=== PATIENT | male | born 1985 | race Caucasian/White ===

== ENCOUNTER 2017-05-18 11:06 | Emergency (ER) | payer OTHER ==
[~2017-05-18] VITALS: Ht 182.9 cm; Wt 106.6 kg
[2017-05-18] MEDS ORDERED: BUPIVACAINE HCL 0.5% 10ML MPF VIAL INJ ONE (12:30)
[2017-05-18] MEDS ORDERED: DEXAMETHASONE 10MG/ML PF INJ INJ ONE (12:30)
[2017-05-18] MEDS ORDERED: DEXAMETHASONE SOD PHOS 10 MG/1 ML VIAL IV ONE (13:30)
[2017-05-18 13:50] VITALS: BP 121/78
== END 2017-05-18 14:00 | disposition home or self-care (01) ==
LOC: ER 11:06
DX: G44.221 Chronic tension-type headache, intractable (principal); F95.2 Tourette's disorder; M62.838 Other muscle spasm
CPT/HCPCS: 99282; J1100

== ENCOUNTER 2018-07-15 21:29 | Emergency (ER) | payer OTHER ==
[~2018-07-15] VITALS: Ht 182.9 cm; Wt 102.5 kg
--- OUTSIDE RECORDS SUMMARY | 2018-07-15 21:33 | XMS REPORT | Clinical Summary ---
Author Author [facility] Address Unknown Phone Unavailable Care Team Providers Care Cadd Manager Name Role Phone Willy Wan DO PCP Allergies Comments Active Allergy Reactions Severity Noted Date Methylprednisolone 03/06/2016 Medications End Date Status Medication Sig Dispensed Refills Start Date Active butalbital-acetaminophen- Take 1 1 caff 50-300-40 mg capsule capsule by 6 mouth 3 (three) times a day as needed. Active clobetasol (TEMOVATE) Apply 1 0 0.05 % ointment application 6 topically as needed. Active metaxalone (SKELAXIN) 800 Take 800 mg 1 MG tablet by mouth as 6 needed. 11/05/2018 Active levETIRAcetam (KEPPRA) Take 1 tablet 60 tablet 11 500 MG tablet (500 mg 8 total) by mouth 2 (two) times a day. Active hydrOXYzine (ATARAX) 50 1-2 pills HS 60 tablet 3 MG tablet 8 Active levocetirizine (XYZAL) 5 Take 5 mg by 0 MG tablet mouth every evening. Active ibuprofen (ADVIL,MOTRIN) Take 800 mg 0 800 MG tablet by mouth every 6 (six) hours as needed for mild pain. Active sildenafil (VIAGRA) 50 MG Take 50 mg by 0 tablet mouth daily as needed for erectile dysfunction. 01/09/2019 Active ALPRAZolam (XANAX) 0.5 MG TAKE 1 TABLET 90 tablet 0 tablet BY MOUTH 9 THREE TIMES DAILY NEEDED FOR ANXIETY AND SLEEP FOR UP TO 180 DAYS 01/05/2018 Discontinued levocetirizine (XYZAL) 5 Take 5 mg by 0 MG tablet mouth as 6 needed. 10/12/2017 ALPRAZolam (XANAX) 0.5 MG TAKE 1 TABLET 90 tablet 5 tablet BY MOUTH 7 THREE TIMES DAILY NEEDED FOR ANXIETY 08/20/2017 carisoprodol (SOMA) 350 Take 1 tablet 180 tablet 3 MG tablet (350 mg 7 total) by mouth 3 (three) times a day as needed for muscle spasms for up to 90 days. 04/06/2018 Discontinued acetaminophen-codeine Take 1 tablet 0 (TYLENOL WITH CODEINE #4) by mouth 300-60 mg per tablet every 4 (four) hours as needed for moderate pain. 01/05/2018 Discontinued ALPRAZolam XR (XANAX XR) 1-2 pills 60 tablet 5 1 MG 24 hr tablet daily 8 07/04/2018 ALPRAZolam (XANAX) 0.5 MG Take 1 tablet 90 tablet 5 tablet (0.5 mg 8 total) by mouth 3 (three) times a day as needed for anxiety or sleep for up to 180 days. Status Hospital, Clinic, or Ordered Dose Route Frequency Start End Date Other Facility Date Administered Medication Active onabotulinumtoxinA 340 Units inj once 07/06/19 (BOTOX) injection 340 19 UnitsIndications: Isolated cervical dystonia Discontinued onabotulinumtoxinA 340 Units inj once 06/23/19 (BOTOX) injection 340 18 8 UnitsIndications: Isolated cervical dystonia Discontinued onabotulinumtoxinA 340 Units inj once 09/23/19 (BOTOX) injection 340 18 8 UnitsIndications: Isolated cervical dystonia Discontinued onabotulinumtoxinA 340 Units inj once 09/23/19 (BOTOX) injection 340 18 8 UnitsIndications: Isolated cervical dystonia Discontinued onabotulinumtoxinA 340 Units inj once 01/06/20 (BOTOX) injection 340 18 8 UnitsIndications: Isolated cervical dystonia Discontinued onabotulinumtoxinA 340 Units inj once 04/06/20 (BOTOX) injection 340 18 9 UnitsIndications: Isolated cervical dystonia Active Problems Problem Noted Date Anxiety 03/06/2016 Obsessive-compulsive disorder 03/06/2016 Roberto de la Tourette's syndrome 03/06/2016 Attention deficit disorder of adult with hyperactivity 03/06/2016 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 Neck pain 03/06/2016 Cervical spondylosis with radiculopathy 03/06/2016 Bilateral carpal tunnel syndrome Myasthenia gravis with exacerbation Encounters Care Team Description Date Type Specialty Kizzy Kang MD 07/12/2018 Refill Neurology Kizzy Kang MD Gilles de la Tourette's syndrome (Primary Dx); Isolated cervical dystonia; Tic of organic origin; Anxiety; Cervical spondylosis with radiculopathy; Obsessive-compulsive disorder, unspecified type; Insomnia, unspecified type; Attention deficit disorder of adult with hyperactivity 07/06/2018 Clinical Neurology Support Kizzy Kang MD Gilles de la Tourette's syndrome (Primary Dx); Isolated cervical dystonia; Tic of organic origin; Anxiety; Cervical spondylosis with radiculopathy; Obsessive-compulsive disorder, unspecified type; Insomnia, unspecified type 04/06/2018 Clinical Neurology Support Kizzy Kang MD Dysphagia, unspecified type (Primary Dx); Myasthenic syndrome 02/15/2018 Orders Only Neurology José Luis Gallegos MD Cervical spondylosis with radiculopathy (Primary Dx) 01/18/2018 Office Visit Neurosurgery Kizzy Kang MD Gilles de la Tourette's syndrome (Primary Dx); Isolated cervical dystonia; Tic of organic origin; Anxiety; Cervical spondylosis with radiculopathy 01/05/2018 Clinical Neurology Support Kizzy Kang MD 12/04/2017 Orders Only Neurology Kizzy Kang MD 11/05/2017 Orders Only Neurology Kizzy Kang MD 11/05/2017 Orders Only Neurology Kizzy Kang MD Cervical stenosis of spinal canal (Primary Dx) 10/22/2017 Orders Only Neurology Kizzy Kang MD Gilles de la Tourette's syndrome (Primary Dx); Isolated cervical dystonia; Tic of organic origin; Obsessive-compulsive disorder, unspecified type; Anxiety; Cervical spondylosis with radiculopathy 09/22/2017 Clinical Neurology Support after 07/14/2017 Family History Medical History Relation Name Comments No Known Problems Father Diabetes Mother Lupus Mother Systemic lupus erythematosus Pulmonary Arterial Mother Pulmonary hypertension Hypertension Relation Name Status Comments Father Alive Mother Alive Social History Date Tobacco Use Types Packs/Day Years Used Former Smoker Smokeless Tobacco: Never Used Comments: quit 6 months ago/ non smoker Alcohol Use Drinks/Week oz/Week Comments Yes occasional Sex Assigned at Date Recorded Not on file Industry Job Start Date Occupation Not on file Not on file Not on file Travel End Travel History Travel Start No recent travel history available. Last Filed Vital Signs Time Taken Vital Sign Reading 07/06/2018 1:37 PM USER [employer]IENCE [employer]AD Blood Pressure 152/88 07/06/2018 1:37 PM USER [employer]AD Pulse 91 - Temperature - - Respiratory Rate - - Oxygen Saturation - - Inhaled Oxygen - Concentration 07/06/2018 1:37 PM US[employer] Weight 103 kg (227 lb) 07/06/2018 1:37 PM USER [employer] Height 182.9 cm (6') 07/06/2018 1:37 PM USER [employer]IENCE LEAD Body Mass Index 30.79 Plan of Treatment Care Team Description Date Type Specialty Kizzy Kang MD [address] [id number] 10/05/2018 Clinical Neurology Support Health Maintenance Due Date Last Done Comments INFLUENZA VACCINE Completed 02/08/2018 Procedures Comments Procedure Name Priority Date/Time Associated Diagnosis EMG Routine 03/25/2018 Dysphagia, unspecified 1:24 PM CDT type Myasthenic syndrome (HCC) after 07/14/2017 Results * EMG General Request (03/25/2018 1:24 PM CDT) Impressions Performed At Mr. Valladares complains of cervical pains that sometimes extend down both arm, bilateral hand numbness that does not waken him from sleep and intermittent difficulty swallowing. Mr. Valladares is being evaluated for carpal tunnel syndrome, cervical radiculopathy and myasthenia gravis. 1) Median motor latencies are bilaterally minimally delayed (right more than left) with minimally decreased velocity on the right, low normal velocity on the left and normal amplitudes. 2) Right ulnar motor latency is borderline normal with slightly decreased velocity and normal amplitudes; left ulnar motor latency is minimally delayed with borderline normal velocity and normal amplitudes. 3) Median and ulnar F Wave responses are bilaterally normal. 4) Repetitive stimulations are normal as noted above. 5) Sensory responses: a. Median palmar bilaterally mildly delayed with low normal amplitudes b. Median digital bilaterally minimally delayed with normal amplitudes c. Ulnar bilaterally borderline normal latencies with slightly diminished amplitudes 6) Intramuscular recordings of the bilateral arms suggest minimal chronic bilateral C6 and C7 denervation. The study suggests bilateral borderline carpal tunnel syndrome, minimal bilateral chronic C6 and C7 radiculopathy and does not electrodiagnostically suggest compromise of the neuromuscular junction. Aaron Lamb M.D. Narrative Performed At NERVE CONDUCTION AND ELECTROMYOGRAPHY REPORT Neurological [place], [facility]-[address]th Floor; [place], [place] [address]; Name: Ab Valladares Date of Procedure: March 25, 2018Location: Sex: Male Date of :81 Referring Physician: Kizzy Kang M.D.FAX: Patient is 6 0 ; 230 lbs.; RA 31.1 C; LA 32.0 C Nerve Conduction(Latencies in msec, Amplitudes uV, Distance cm, Velocity M/Sec) Right Motor Nerves Dist. Lat. Prox lat. D. amp. P. Amp.Dist. Velocity Right Median4.38.98.2 7.822.0 48.0 Right Ulnar (below elb) 2.95.28.3 8.212.0 47.4 Right Median F Wave 29.0 Right Ulnar F Wave 28.7 Right Sensory Nerves Dist. Lat. Prox lat. Dist. amp. Prox Amp. Distance Velocity Right Median Palmar 2.5 66.7 8.0 Right Median Digital 3.5 18.3 13.0 Right Ulnar3.0 12.0 11.0 Left Motor Nerves Dist. Lat. Prox lat. D. amp. P. Amp.Dist. Velocity Left Median4.18.711.3 9.823.8 51.9 Left Ulnar (below elb) 3.25.39.6 7.612.0 49.6 Left Median F Wave 29.5 Left Ulnar F Wave 29.8 Left Sensory Nerves Dist. Lat. Prox lat. Dist. amp. Prox Amp. Distance Velocity Left Median Palmar 2.7 65.7 8.0 Left Median Digital 3.5 21.3 13.0 Left Ulnar2.9 13.0 11.0 Electromyography (Motor Unit in mV; H=High; L=Low; P=Polyphasic; NS=Non-specific) Right ArmFibs. Pos. Waves Fasc. PolyphasiaMotor UnitsRecruitment Deltoid wnl wnlwnl wnlwnlwnl Biceps wnl wnlwnl wnlwnlwnl Triceps wnl wnlwnl 20HPwnlNS Brachioradialis wnl wnlwnl 20HPwnlNS Ext. Dig. Comm. wnl wnlwnl 20HPwnlNS lst D. Interosseous wnl wnlwnl wnlwnlwnl Left ArmFibs. Pos. Waves Fasc. PolyphasiaMotor UnitsRecruitment Deltoid wnl wnlwnl wnlwnlwnl Biceps wnl wnlwnl wnlwnlwnl Triceps wnl wnlwnl 20HPwnlNS Brachioradialis wnl wnlwnl 20HPwnlNS Ext. Dig. Comm. wnl wnlwnl 20HPwnlNS lst D. Interosseous wnl wnlwnl wnlwnlwnl Repetitive stimulations: Repetitive stimulations at 3 Hz. of the left facial nerve (recording from nasalis), before and after exercise, are normal, without significant increment or decrement in the response: At rest: 0.0% decrement; immediately post-exercise:4.8% increment; one minute post-exercise: 7.6% increment; two minutes post-exercise: 9.7% increment; three minutes post-exercise: 2.5% increment. Repetitive stimulations at 3 Hz. of the left ulnar nerve (recording from ADM), before and after exercise, are normal, without significant increment or decrement in the response: At rest: 1.7% increment; immediately post-exercise: 1.7% decrement; one minute post-exercise: 0.8% decrement; two minutes post-exercise: 1.6% increment; three minutes post-exercise: 1.6% decrement. Repetitive stimulations at 3 Hz. of the left XI nerve (recording from trapezius), before and after exercise, are normal, without significant increment or decrement in the response: At rest: 8.5% decrement; immediately post-exercise: 6.2% decrement; one minute post-exercise: 8.8% decrement; two minutes post-exercise: 8.5% decrement; three minutes post-exercise: 8.7% decrement. after 07/14/2017 Insurance Payer Benefit Subscriber ID Type Phone Address Plan / Group xxxxxxxxx [facility] Advance Directives Patient has advance care planning documents on file. For more information, mary stewart contact: Jorge Ramsey [address] [place] [address]
== END 2018-07-15 23:00 | disposition home or self-care (01) ==
LOC: FSED 21:29
DX: R05 Cough (principal); I88.9 Nonspecific lymphadenitis, unspecified
CPT/HCPCS: 99282

== ENCOUNTER 2019-02-02 10:37 | Emergency (ER) | payer OTHER ==
[~2019-02-02] VITALS: Ht 182.9 cm; Wt 104.8 kg
--- OUTSIDE RECORDS SUMMARY | 2019-02-02 10:41 | XMS REPORT | Clinical Summary ---
Author Author [facility] Organization [facility] Address Unknown Phone Unavailable Care Team Providers Care Washer Meat Name Role Phone Willy Wan DO PCP [...] MG tablet by mouth as 6 needed. Active ibuprofen (ADVIL,MOTRIN) Take 800 mg 0 800 MG tablet by mouth every 6 (six) hours as needed for mild pain. Active sildenafil (VIAGRA) 50 MG Take 50 mg by 0 tablet mouth daily as needed for erectile dysfunction. 02/13/2019 Active ALPRAZolam XR (XANAX XR) Take 2 60 tablet 5 1 MG 24 hr tablet tablets (2 mg 9 total) by mouth daily for 180 days. Active CAVERJECT IMPULSE 10 mcg U UTD 5 injection INTRACAVERNOS 9 ALLY UP TO 3 TIMES A WEEK. 02/02/2019 Active diazePAM (VALIUM) 5 MG Take 1 tablet 60 tablet 2 tablet (5 mg total) 9 by mouth every 12 (twelve) hours as needed for anxiety or muscle spasms for up to 90 days. 02/25/2019 Active ARIPiprazole (ABILIFY) 5 Take 1 tablet 30 tablet 11 MG tablet (5 mg total) 9 by mouth daily for 30 days. 04/06/2018 Discontinued (Stop Taking at Discharge) acetaminophen-codeine Take 1 tablet 0 (TYLENOL WITH CODEINE #4) by mouth 300-60 mg per tablet every 4 (four) hours as needed for moderate pain. 10/12/2018 Discontinued (Med List Cleanup) levETIRAcetam (KEPPRA) Take 1 tablet 60 tablet 11 500 MG tablet (500 mg 8 total) by mouth 2 (two) times a day. 10/12/2018 Discontinued (Med List Cleanup) hydrOXYzine (ATARAX) 50 1-2 pills HS 60 tablet 3 MG tablet 8 07/04/2018 ALPRAZolam (XANAX) 0.5 MG Take 1 tablet 90 tablet 5 tablet (0.5 mg 8 total) by mouth 3 (three) times a day as needed for anxiety or sleep for up to 180 days. 10/12/2018 Discontinued (Med List Cleanup) levocetirizine (XYZAL) 5 Take 5 mg by 0 MG tablet mouth every evening. 08/17/2018 Discontinued ALPRAZolam (XANAX) 0.5 MG TAKE 1 TABLET 90 tablet 0 tablet BY MOUTH 9 THREE TIMES DAILY NEEDED FOR ANXIETY AND SLEEP FOR UP TO 180 DAYS 08/20/2018 cyclobenzaprine Take 1 tablet 30 tablet 0 (FLEXERIL) 10 mg tablet (10 mg total) 9 by mouth nightly for 30 days. 01/26/2019 Discontinued ziprasidone (GEODON) 20 Take 1 60 capsule 2 MG capsule capsule (20 9 mg total) by mouth 2 (two) times a day with meals for 90 days. Status Hospital, Clinic, or Ordered Dose Route Frequency Start End Date Other Facility Date Administered Medication Active onabotulinumtoxinA 365 Units inj once 01/19/20 (BOTOX) injection 365 19 UnitsIndications: Isolated cervical dystonia Discontinued onabotulinumtoxinA 340 Units inj once 01/06/20 (BOTOX) injection 340 18 8 UnitsIndications: Isolated cervical dystonia Discontinued onabotulinumtoxinA 340 Units inj once 04/06/20 (BOTOX) injection 340 18 9 UnitsIndications: Isolated cervical dystonia Discontinued onabotulinumtoxinA 340 Units inj once 07/06/19 (BOTOX) injection 340 19 9 UnitsIndications: Isolated cervical dystonia Discontinued onabotulinumtoxinA 365 Units inj once 10/13/19 (BOTOX) injection 365 19 9 UnitsIndications: Isolated cervical dystonia Active Problems [...] Description Date Type Specialty Kizzy Kang MD 01/26/2019 Orders Only Neurology Kizzy Kang MD Gilles de la Tourette's syndrome (Primary Dx); Isolated cervical dystonia; Tic of organic origin; Anxiety; Obsessive-compulsive disorder, unspecified type; Cervical spondylosis with radiculopathy 01/18/2019 Clinical Neurology Support Kizzy Kang MD 11/04/2018 Orders Only Neurology Kizzy Kang MD Gilles de la Tourette's syndrome (Primary Dx); Isolated cervical dystonia; Tic of organic origin; Anxiety; Obsessive-compulsive disorder, unspecified type; Cervical spondylosis with radiculopathy; Attention deficit disorder of adult with hyperactivity 10/12/2018 Clinical Neurology Support Kizzy Kang MD 08/17/2018 Orders Only Neurology Kizzy Kang MD 07/21/2018 Orders Only Neurology Kizzy Kang MD 07/12/2018 Refill Neurology Kizzy [...] Dx); Myasthenic syndrome 02/15/2018 Orders Only Neurology after 02/01/2018 Family History Medical History Relation Name Comments No Known Problems Father Diabetes Mother Lupus Mother Systemic lupus erythematosus Pulmonary Arterial Mother Pulmonary hypertension Hypertension Relation Name Status Comments Father Alive Mother Alive Social History Date Tobacco Use Types Packs/Day Years Used Former Smoker Smokeless Tobacco: Never Used Comments: quit 6 months ago/ non smoker Drinks/Week oz/Week Comments Alcohol Use occasional Yes Sex Assigned at Date Recorded Not on file Industry Job Start Date Occupation Not on file Not on file Not on file Travel End Travel History Travel Start No recent travel history available. Last Filed Vital Signs Reading Time Taken Comments Vital Sign 126/86 01/18/2019 10:04 AM CDT Blood Pressure 102 01/18/2019 10:04 AM CDT Pulse - - Temperature - - Respiratory Rate - - Oxygen Saturation - - Inhaled Oxygen Concentration 106 kg (234 lb 9.6 oz) 01/18/2019 10:04 AM CDT Weight 182.9 cm (6') 01/18/2019 10:04 AM CDT Height 31.82 01/18/2019 10:04 AM CDT Body Mass Index Plan of Treatment Care Team Description Date Type Specialty Kizzy Kang MD [address] [place] [address] [phone] 04/19/2019 Clinical Neurology Support Health Maintenance Due Date Last Done Comments INFLUENZA VACCINE 12/23/2018 02/08/2018 Procedures Comments Procedure Name Priority Date/Time Associated Diagnosis EMG Routine 03/25/2018 Dysphagia, unspecified 1:24 PM CDT type Myasthenic syndrome (HCC) after 02/01/2018 Results * EMG General Request (03/25/2018 1:24 [...] At NERVE CONDUCTION AND ELECTROMYOGRAPHY REPORT Neurological [place], [facility]-[address]th [facility]; [place], [place] [address]; Name: Ab Valladares Date of Procedure: March [...] decrement; three minutes post-exercise: 8.7% decrement. after 02/01/2018 Insurance Type Payer Benefit Subscriber ID Effective Phone Address Plan / Dates Group xxxxxxxxx [id number] [facility] [place], [place] Advance Directives For more information, please contact: [phone] Patient Lead Press Operator Explanation Type Date Recorded Advance Directives, Living Will and Medical Power of Second Ride Fare Collector
--- NOTE | 2019-02-02 11:43 | NUR ---
clonidine not given, provider ordered on the wrong patient attempted to administer the ordered toradol but pt. declines at this time, stating "I don't feel like the pain is really that bad." Informed pt. to let me know should he wish to get the toradol. pt. verbalized understanding to the above
[2019-02-02] MEDS ORDERED: CLONIDINE HCL 0.2 MG TAB PO ONE (11:45)
[2019-02-02] MEDS ORDERED: IOPAMIDOL 370 MG/ML 200 ML INFUS..BTL INJ ONE (11:48)
[2019-02-02] MEDS ORDERED: SODIUM CHLORIDE 0.9% 50ML 50 ML ONE (11:48)
[2019-02-02] MEDS ORDERED: KETOROLAC TROMETHAMINE 30 MG/ML VIAL ONE (11:49)
[2019-02-02] MEDS ORDERED: KETOROLAC TROMETHAMINE 30 MG/ML VIAL IV ONE (12:00)
--- NOTE | 2019-02-02 12:52 | Diagnostic Imaging Report ---
EXAM: CT Abdomen and Pelvis WITH intravenous contrast INDICATION: Abdominal pain COMPARISON: None. TECHNIQUE: Abdomen and pelvis were scanned utilizing a multidetector helical scanner from the lung base to the pubic symphysis after administration of IV contrast. Coronal and sagittal reformations were obtained. Routine protocol was performed. Scan was performed during portal venous phase. IV CONTRAST: 100mL of Isovue 370 ORAL CONTRAST: Water RADIATION DOSE: Total DLP: 870.9 mGy*cm Dose modulation, iterative reconstruction, and/or weight based adjustment of the mA/kV was utilized to reduce the radiation dose to as low as reasonably achievable. FINDINGS: LOWER THORAX: Normal. HEPATOBILIARY: No focal hepatic lesions. No biliary ductal dilatation. The gallbladder appears unremarkable. SPLEEN: No splenomegaly. PANCREAS: No focal masses or ductal dilatation. ADRENALS: No adrenal nodules. KIDNEYS/URETERS: No hydronephrosis, stones, or solid mass lesions. PELVIC ORGANS/BLADDER: Unremarkable. PERITONEUM / RETROPERITONEUM: No free air or fluid. LYMPH NODES: No lymphadenopathy. VESSELS: Unremarkable. GI TRACT: No distention or wall thickening. Normal appendix. BONES AND SOFT TISSUES: Unremarkable. IMPRESSION: No acute findings in the abdomen or pelvis. Signed by: Evelyn Rivera MD on 02/02/2019 12:49 PM
[2019-02-02 13:14] VITALS: BP 150/90
== END 2019-02-02 13:05 | disposition home or self-care (01) ==
LOC: FSED 10:37
DX: R10.31 Right lower quadrant pain (principal); Z88.8 Allergy status to other drugs, medicaments and biological substances
CPT/HCPCS: 74177; 80053; 81003; 85025; 99284; J1885; Q9967

== ENCOUNTER 2020-10-20 22:18 | Emergency (ER) | payer BC, OTHER ==
[~2020-10-20] VITALS: Ht 182.9 cm; Wt 102.1 kg
== END 2020-10-20 23:55 | disposition home or self-care (01) ==
LOC: FSED 22:44
DX: R05 Cough (principal); F41.9 Anxiety disorder, unspecified; F42.9 Obsessive-compulsive disorder, unspecified; F95.2 Tourette's disorder; M54.2 Cervicalgia; G89.29 Other chronic pain
CPT/HCPCS: 71045; 99283

== ENCOUNTER 2021-07-26 00:23 | Emergency (ER) | payer BC, OTHER ==
[~2021-07-26] VITALS: Ht 182.9 cm; Wt 102.1 kg
== END 2021-07-26 01:45 | disposition home or self-care (01) ==
LOC: FSED 00:28
DX: R03.0 Elevated blood-pressure reading, without diagnosis of hypertension (principal); F41.9 Anxiety disorder, unspecified; G47.25 Circadian rhythm sleep disorder, jet lag type; F95.2 Tourette's disorder
CPT/HCPCS: 99282

== ENCOUNTER 2024-07-05 02:26 | Emergency (ER) | payer BC, OTHER ==
[~2024-07-05] VITALS: Ht 182.9 cm; Wt 111.1 kg
[~2024-07-05 02:26] MED LIST: MEDROL4 M2 PO
[2024-07-05] MEDS ORDERED: OXYMETAZOLINE HCL 0.05% NAS 1 SPRAY BTL ONE (02:36)
[2024-07-05 02:39] VITALS: TEMP 97.7
[2024-07-05] MEDS: TRANEXAMIC ACID 1,000 MG/10 ML ML IV STA (03:18)
[2024-07-05 03:22] VITALS: BP 153/90
[2024-07-05] MEDS: HYDRALAZINE HCL 20 MG/ML VIAL IV STA (03:22)
[2024-07-05 03:51] VITALS: PULSE 86; RESP 16; O2SAT 98
[2024-07-05] MEDS ORDERED: NORVASC5 MG PO (04:01)
== END 2024-07-05 04:09 | disposition home or self-care (01) ==
LOC: FSED 02:31
DX: R04.0 Epistaxis (principal); R03.0 Elevated blood-pressure reading, without diagnosis of hypertension; I10 Essential (primary) hypertension; F41.9 Anxiety disorder, unspecified; F95.2 Tourette's disorder; G47.30 Sleep apnea, unspecified; F17.210 Nicotine dependence, cigarettes, uncomplicated
CPT/HCPCS: 80053; 85025; 85610; 99284; J0360

== ENCOUNTER 2024-07-06 06:20 | Emergency (ER) | payer BC, OTHER ==
[~2024-07-06] VITALS: Ht 182.9 cm; Wt 111.1 kg
[~2024-07-06 06:20] MED LIST changes: +NORVASC5 MG PO
[2024-07-06 06:26] VITALS: TEMP 97.6
[2024-07-06 06:40] LABS: BASOPHILS # (AUTO) 0.1 (0.0-0.1); BASOPHILS % 0.6 % (0.0-1.0); EOSINOPHILS # (AUTO) 0.2 (0.0-0.4); EOSINOPHILS % 1.5 % (0.0-6.0); HEMOGLOBIN 16.8 g/dL (14.0-18.0); LYMPHOCYTES # (AUTO) 3.1 (1.0-3.2); LYMPHOCYTES % 22.8 % (18.0-39.1); MEAN CORPUSCULAR HEMOGLOBIN 30.7 pg (28-32); MEAN CORPUSCULAR VOLUME 87.6 fL (81-99); MONOCYTES # (AUTO) 1.3 (0.2-0.8); MONOCYTES % 9.9 % (4.4-11.3); NEUTROPHILS # (AUTO) 8.7 (2.1-6.9); NEUTROPHILS % 64.2 % (38.7-80.0); PLATELET COUNT 359 x10e3/uL (140-360); RED BLOOD COUNT 5.48 x10e6/uL (4.3-5.7); RED CELL DISTRIBUTION WIDTH 11.9 % (11.7-14.4); WHITE BLOOD COUNT 13.48 x10e3/uL (4.8-10.8)
[2024-07-06 07:12] LABS: ALBUMIN 4.5 g/dL (3.5-5.0); ALBUMIN/GLOBULIN RATIO 1.2 (0.8-2.0); ANION GAP 16.6 mmol/L (8-16); BILIRUBIN,TOTAL 0.6 mg/dL (0.2-1.2); CREATININE, SERUM 1.02 mg/dL (0.72-1.25); POTASSIUM 3.6 mmol/L (3.5-5.1); TOTAL PROTEIN 8.4 g/dL (6.5-8.1)
[2024-07-06 07:45] VITALS: PULSE 91; RESP 16; O2SAT 94
== END 2024-07-06 08:55 | disposition home or self-care (01) ==
LOC: ER 06:26
DX: R51.9 Headache, unspecified (principal); I10 Essential (primary) hypertension; F41.9 Anxiety disorder, unspecified; F95.2 Tourette's disorder; G47.30 Sleep apnea, unspecified; R94.31 Abnormal electrocardiogram [ECG] [EKG]
CPT/HCPCS: 36415; 70450; 71045; 80053; 84484; 85025; 93005; 99284

== ENCOUNTER 2025-03-02 17:25 | Emergency (ER) | payer BC, OTHER ==
[~2025-03-02] VITALS: Ht 182.9 cm; Wt 115.3 kg
[2025-03-02] MEDS ORDERED: OXYCODONE HCL20 M1 PO (18:17)
[2025-03-02] MEDS ORDERED: AMLODIPINE BESY10 MG PO (18:17)
[2025-03-02] MEDS: HYDRALAZINE HCL 20 MG/ML VIAL IV ONE (19:48)
[2025-03-02 19:55] VITALS: PULSE 80; RESP 18; TEMP 98.2
[2025-03-02 21:40] VITALS: BP 142/82; PULSE 80; RESP 18; TEMP 98.2; O2SAT 95
== END 2025-03-02 19:59 | disposition home or self-care (01) ==
LOC: FSED 17:47
DX: R51.9 Headache, unspecified (principal); I10 Essential (primary) hypertension; G47.30 Sleep apnea, unspecified; F41.9 Anxiety disorder, unspecified; F95.2 Tourette's disorder
CPT/HCPCS: 70450; 80053; 80307; 84484; 85025; 99284; J0360; 81003